=== PATIENT | male | born 1975 | race African-American/Black ===

== ENCOUNTER → 2023-12-07 | Outpatient (CLI) | payer BC | LOC: COL.RAD 10:20 | DX: M50.11 Cervical disc disorder with radiculopathy, high cervical region (principal); M89.38 Hypertrophy of bone, other site; M48.02 Spinal stenosis, cervical region; M50.121 Cervical disc disorder at C4-C5 level with radiculopathy; M50.122 Cervical disc disorder at C5-C6 level with radiculopathy; M47.22 Other spondylosis with radiculopathy, cervical region ==